=== PATIENT | female | born 1940 | race Caucasian/White ===

== ENCOUNTER 2017-05-15 11:19 | Day surgery (SDC) | payer MEDICARE ==
[2017-05-12 10:36] VITALS: BMI 26.4
[~2017-05-15 11:19] MED LIST: HYDROmorphone 1 MG/ML 1 ML SYRINGE IVP PRN; LACTATED RINGERS 1,000 ML IV SCH; MIDAZOLAM 2 MG/2 ML VIAL IV PRN; ONDANSETRON 4 MG/2 ML VIAL IVP ONE; ceFAZolin 2 GM in SODIUM CHLORIDE 0.9% 100 ML IVPB ONE
[2017-05-15] MEDS ORDERED: LIDOCAINE 1% 20 ML VIAL (10MG/ML) FOR IV START INTRADERMA ONE (11:51)
[2017-05-15 12:24] LABS: Basophils % (A) 0 %; Eosinophils # (A) 0.1 k/uL (0-0.7); Eosinophils % (A) 2 %; HCT 39.7 % (34.0-46.0); HDW 2.56; HGB 14.1 gm/dL (11.4-16.0); Luc # (Auto) 0.27; Luc % (Auto) 4; Lymphocytes # (A) 1.1 k/uL (1.0-4.8); Lymphocytes % (A) 18 %; MCH 32.5 pg (25.0-35.0); MCHC 35.4 g/dL (31.0-37.0); MCV 91.8 fL (80.0-100.0); Mean Platelet Volume 6.9; Monocytes # (A) 0.4 k/uL (0-1.0); Monocytes % (A) 7 %; Neutrophils # (A) 4.3 k/uL (1.3-7.7); Neutrophils % (A) 69 %; RBC 4.33 m/uL (3.80-5.40); RDW 13.2 % (11.5-15.5); WBC 6.2 k/uL (3.8-10.6); WBC (Perox) 6.02
[2017-05-15 12:39] LABS: Potassium 3.4 mmol/L (3.5-5.1)
[2017-05-15] MEDS ORDERED: fentaNYL (PF) 50 MCG/ML 2 ML AMP ONE (13:01)
[2017-05-15] MEDS ORDERED: MIDAZOLAM 2 MG/2 ML VIAL ONE (13:01)
[2017-05-15] MEDS ORDERED: PROPOFOL 10 MG/ML 20 ML VIAL IV ONE (13:01)
[2017-05-15] MEDS ORDERED: PHENYLEPHRINE-0.9% NACL SYG 1 MG/10 ML SYRINGE ONE (13:01)
[2017-05-15] MEDS ORDERED: LIDOCAINE 1% INJ 10MG/ML (20 ML MDV) ONE (13:01)
[2017-05-15] MEDS ORDERED: SUCCINYLCHOLINE CHLORIDE 100 MG/5 ML SYR IV ONE (13:01)
--- NOTE | 2017-05-15 14:26 | XR ---
EXAMINATION TYPE: XR foot complete LT DATE OF EXAM: 05/15/2017 COMPARISON: NONE HISTORY: Hammertoe repair TECHNIQUE: One view submitted FINDINGS: Surgical change of the second digit appears in near-anatomic alignment IMPRESSION: Intraoperative image
--- NOTE | 2017-05-15 14:26 | FL ---
EXAMINATION TYPE: FL guidance operating room DATE OF EXAM: 05/15/2017 HISTORY: Flouroscopy time 12 seconds of fluoroscopy provided. IMPRESSION: 1. Fluoroscopy time.
[2017-05-15 14:37] VITALS: TEMP 97.6
[2017-05-15 14:45] VITALS: RESP 16
--- NOTE | 2017-05-15 14:57 | P.OP ---
Date of Procedure: 05/15/17 Preoperative Diagnosis: 1. Left rigid second hammertoe deformity 2. Left gastrocnemius equinus contracture Postoperative Diagnosis: Same Procedure(s) Performed: 1. Correction of left second hammertoe deformity with PIP resection arthroplasty and flexor to extensor tendon transfer (Yaneth) 2. Left second MTP capsulotomy 3. Left second toe extensor tendon lengthening 4. Left gastrocnemius recession Implants: Anesthesia: CONYA Surgeon: Baldomero Valera Tunnel Mucker #1: dE Portillo Estimated Blood Loss (ml): 5 IV fluids (ml): 400 Pathology: none sent Condition: stable Disposition: PACU Indications for Procedure: The patient is a very pleasant 76-year-old female has had a long standing history of problems with her left foot. She has a mild hallux valgus deformity and a left rigid second hammertoe deformity. She developed irritation over the dorsal aspect of the second toe where it rubbed in her shoe. She has tried multiple nonsurgical treatments including shoe modification, Budin splint and, toe taping, activity modification all with diminishing relief. The patient presented to me with a second opinion regarding further treatment. She requested surgery. Due to the patient's deformity and x-ray findings my recommendation was to perform a PIP resection arthroplasty, flexor to extensor tendon transfer, MTP capsulotomy, extensor tendon lengthening, second metatarsal shortening osteotomy and a gastroc recession. We discussed the potential risks and complication of surgery including but not limited to risk of anesthesia, risk of superficial infection, risk of deep infection, risk of pin site action, risk of loss of asked in spite of the toe, risk of floating toe , risk of need for second 20 patient, risk of recurrent deformity, risk of chronic pain, risk of chronic swelling, risk of need for further surgery, risk of decreased Strength, risk of damage the sural nerve, risk of decreased Circumference, risk of postoperative medical problems including DVT and fatal pulmonary embolus and possibly loss of life or limb. The patient provides her verbal and written consent to go forward with the above procedure. Operative Findings: Description of Procedure: The patient was identified in preoperative holding and the correct left leg was marked with my initials. I reviewed the consent form with the patient and her family. All their questions were answered. The patient was then brought back to the operating room. She was transferred onto the operating room table and a general anesthetic and preoperative antibiotics were administered. All bony prominences were well-padded. A tourniquet was applied to the proximal aspect of the left thigh. The patient's left leg was then prepped and draped in the standard sterile fashion. Prior to starting surgery timeout was performed identifying the correct patient, operative extremity and procedure. The patient 's leg was then elevated, exsanguinated with an Esmarch bandage the tourniquet was inflated to 250 mmHg. I began by outlining an incision over the medial aspect of the calf 1 thumb breadth posterior to the tibia over the distal muscle belly of the gastrocnemius. Skin incision with a 15 blade scalpel and I dissected carefully down to the subcutaneous tissue to the fascia which was incised longitudinally in line with the skin incision. I believe develop the interval between the gastrocnemius aponeurosis and superficial fascia and between the gastrocnemius aponeurosis and soleus fascia. The sural nerve was found to be adherent to the superficial fascia. Modified right angle retractors were placed isolating the gastrocnemius aponeurosis was was transected from medial to lateral under direct visualization. Following this there is a significant increase in dorsiflexion at the knee extended. The wound was copiously irrigated and then closed in layers with 2-0 Vicryl for the subcutaneous tissue and 3-0 nylon for the skin. Tension was then turned to the second toe. A longitudinal incision was marked out over the dorsal aspect of the second toe and the distal third of the second metatarsal. Skin incision made a 15 blade scalpel. Dissection was carried down carefully through subcutaneous tissue. The extensor tendon was found to be contracted in a Z-type lengthening was performed. The MTP capsule was then incised dorsally, medially and laterally. After incising the MTP Was Able to Reduce the MTP Joint. At This Point I Decided Not to Perform a Second Metatarsal Shortening Osteotomy As I Was Able to Easily Reduce the MTP Joint. I Then Incised the Capsule and Extensor Apparatus over the Dorsal Aspect of the PIP Joint. The Collateral Ligaments Were Released and the Distal Aspect of the small phalanx was cut with a saw. The floor of the PIP capsule was incised longitudinally and the short flexor tendons were identified and transected. The long flexor tendon was identified, grasped with a mosquito, and transected distally. The tendon was then split along its raphae. A small rent was made in the dorsal aspect of the extensor mechanism over the proximal phalanx. A small mosquito was tunneled subperiosteally both medially and laterally and both limbs of the long flexor tendon were transferred to the dorsal aspect of the proximal phalanx. Using a 2-0 vicryl the flexor tendon was repaired dorsally incorporating into the extensor mechanism. A 65 K wire was then driven down the distal aspect of the toe across the proximal phalanx and into the second metatarsal. Position of the K wire was verified with fluoroscopy. Clinically the second toe was reduced and in satisfactory position. Both wounds were copiously irrigated. The extensor mechanism over the PIP joint was closed with interrupted 2-0 Vicryl stitch. The extensor tendon was reapproximated using 2-0 Vicryl in a lengthened position. The deep subcu was reapproximated using 3-0 Monocryl. Skin was closed with 3-0 nylon horizontal mattress stitches. The K wire was bent and capped distally. The tourniquet was let down and the tip of the toe immediately pinked up. A sterile dressing consisting of Betadine soaked Adaptic, 4 x 4, and web roll was applied followed by an Morteza wrap. The patient was awoken from her anesthetic and transferred to PACU having tied the procedure well. Ed Orozco PA-C required as a skilled collections assistant for patient positioning, surgical exposure, retraction, closure, and application of dressing. Plan: The patient is going to be discharged home as an outpatient. She can heel weight-bear in a cam boot. Due to her ALLERGY to aspirin and low risk for DVT recommendation is for early ambulation and no chemoprophylaxis since she is able to weight-bear. She can change her dressing in 2 days. Instructed on daily pin site care with a Q-tip soaked in peroxide. She will follow-up in the office in 2 weeks.
[2017-05-15 16:08] VITALS: BP 136/69; PULSE 75
== END 2017-05-15 16:44 | disposition home or self-care (01) ==
LOC: OR 11:19
PROVIDERS: ATTEND Orthopaedic Surgery
DX: M20.42 Other hammer toe(s) (acquired), left foot (principal); M62.462 Contracture of muscle, left lower leg; I10 Essential (primary) hypertension; E78.5 Hyperlipidemia, unspecified; J45.909 Unspecified asthma, uncomplicated; E07.9 Disorder of thyroid, unspecified; H91.91 Unspecified hearing loss, right ear; Z85.3 Personal history of malignant neoplasm of breast; Z79.51 Long term (current) use of inhaled steroids; Z79.899 Other long term (current) drug therapy
CPT/HCPCS: 80051; 85025; 73630; 28285; 27687; C1713; J2250; J0690; J2405; J2001; J3010; J1170; J2370; J0330; J2704

== ENCOUNTER → 2017-05-21 | Outpatient (CLI) | payer MEDICARE ==
--- NOTE | 2017-05-21 15:59 | US ---
EXAMINATION TYPE: US venous doppler duplex LE LT DATE OF EXAM: 05/21/2017 3:45 PM COMPARISON: NONE CLINICAL HISTORY: LLE Pain M79.672. Pain and swelling left lower leg s/p left foot surgery SIDE PERFORMED: Left TECHNIQUE: The lower extremity deep venous system is examined utilizing real time linear array sonog josefa with graded compression, doppler sonography and color-flow sonography. VESSELS IMAGED: External Iliac Vein (EIV) Common Femoral Vein Deep Femoral Vein Greater Saphenous Vein * Femoral Vein Popliteal Vein Small Saphenous Vein * Proximal Calf Veins (* superficial vessels) Grayscale, color doppler, spectral doppler imaging performed of the deep veins of the lower extremity . There is normal flow, compressibility, vascular waveforms . Left Leg: Negative for DVT Results called to Jeremiah at Dr's office at time of exam IMPRESSION: No evidence for DVT at this time.
== END ==
LOC: RADUSWWP 15:25
PROVIDERS: ATTEND Orthopaedic Surgery
DX: M79.672 Pain in left foot (principal); R22.42 Localized swelling, mass and lump, left lower limb; I80.9 Phlebitis and thrombophlebitis of unspecified site

== ENCOUNTER → 2017-07-01 | Outpatient (CLI) | payer MEDICARE ==
--- NOTE | 2017-07-08 10:07 | P.ARTDOP ---
Arterial Doppler LOWER EXTREMITY ARTERIAL DOPPLER: DATE OF SERVICE: 07/01/2017 Reason for study: Left leg pain and open ulcer. Doppler waveforms: Multiphasic bilaterally throughout. Pulse volume recording: Normal configuration. Pressure gradients: None. Ankle-brachial indices: Greater than 1 bilaterally. Toe pressures: 123 on the right, 123 on the left Impression: Normal study.
== END ==
LOC: RADUSWWP 08:48
PROVIDERS: ATTEND Internal Medicine Infectious Disease
DX: M79.605 Pain in left leg (principal)
CPT/HCPCS: 93923